=== PATIENT | female | born 1990 | race Hispanic/Latino ===

== ENCOUNTER 2019-05-11 23:50 | Emergency (ER) | payer MEDICAID, OTHER ==
[2019-05-12] MEDS ORDERED: ACETAMINOPHEN 500 MG TAB PO ONE (01:15)
[2019-05-12] MEDS ORDERED: IBUPROFEN 800 MG TAB PO ONE (01:15)
[2019-05-12] MEDS ORDERED: diazePAM 5 MG TAB PO ONE (01:16)
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
== END 2019-05-12 03:15 | disposition home or self-care (01) ==
LOC: ED 23:50
DX: M54.2 Cervicalgia (principal); G44.319 Acute post-traumatic headache, not intractable; F41.9 Anxiety disorder, unspecified; Z79.1 Long term (current) use of non-steroidal anti-inflammatories (NSAID); Z79.899 Other long term (current) drug therapy; V89.2XXA Person injured in unspecified motor-vehicle accident, traffic, initial encounter; Y93.89 Activity, other specified; Y92.488 Other paved roadways as the place of occurrence of the external cause; Y99.8 Other external cause status
CPT/HCPCS: 70450; 72125; 99283